=== PATIENT | male | born 1985 | race Hispanic/Latino ===

== ENCOUNTER 2023-03-10 19:05 | Inpatient (IN) | payer OTHER ==
[~2023-03-10] VITALS: Ht 177.8 cm; Wt 95.3 kg
[2023-03-10 20:12] LABS: BASOPHILS # (AUTO) 0.09 K/uL (0.00-0.20); BASOPHILS % (AUTO) 1.1 % (0.0-5.0); EOSINOPHILS # (AUTO) 0.19 K/uL (0.00-0.70); EOSINOPHILS % (AUTO) 2.3 % (0.0-8.0); HEMATOCRIT 43.2 % (42-54); IMMATURE GRANULOCYTE ABSOLUTE 0.03 K/uL (0-1); LYMPHOCYTES # (AUTO) 2.2 K/uL (1.0-4.8); LYMPHOCYTES % (AUTO) 27.1 % (21.0-51.0); MEAN CORPUSCULAR HEMOGLOBIN 30.6 pg (27.0-33.0); MEAN CORPUSCULAR HGB CONC 34.3 g/dL (32.0-36.0); MEAN CORPUSCULAR VOLUME 89.4 fL (79-99); MONOCYTES # (AUTO) 0.8 K/uL (0.1-1.0); MONOCYTES % (AUTO) 9.5 % (3.0-13.0); NEUTROPHILS # (AUTO) 4.8 K/uL (1.8-7.7); NEUTROPHILS % (AUTO) 59.6 % (40.0-77.0); PLATELET COUNT (AUTO) 197 K/uL (130-400); RED BLOOD CELL COUNT(AUTO) 4.83 MIL/uL (4.50-6.20); RED CELL DISTRIBUTION WIDTH 12.6 % (11.0-15.5); WHITE BLOOD COUNT (AUTO) 8.1 K/uL (4.8-10.8)
[2023-03-10 20:24] LABS: CREATININE 1.6 mg/dL (0.5-1.5); POTASSIUM 4.7 mmol/L (3.5-5.1)
[2023-03-10 20:25] LABS: APPEARANCE,URINE CLEAR (CLEAR); BILIRUBIN,URINE NEGATIVE (NEGATIVE); COLOR,URINE LIGHT-YELLOW (YELLOW); GLUCOSE, URINE (UA) NEGATIVE (NEGATIVE); KETONES,URINE NEGATIVE (NEGATIVE); LEUKOCYTE ESTERASE ,URINE NEGATIVE Leu/uL (NEGATIVE); NITRATE,URINE NEGATIVE (NEGATIVE); OCCULT BLOOD,URINE NEGATIVE (NEGATIVE); PROTEIN,URINE 10 mg/dL (NEGATIVE); UROBILINOGEN,URINE 0.2 mg/dL (0.2-1.0)
[2023-03-10 20:26] LABS: ADD UA MICROSCOPIC YES
[2023-03-10 20:27] LABS: MUCUS,URINE RARE LPF (None Seen); RBC,URINE 0-1 /HPF (0-1); WBC,URINE 0-1 /HPF (0-1)
[2023-03-10 20:28] LABS: ALBUMIN 3.7 g/dL (3.5-5.0); BILIRUBIN,TOTAL 0.5 mg/dL (0.2-1.0); TOTAL PROTEIN, SERUM 6.1 g/dL (6.0-8.3)
[2023-03-10] MEDS ORDERED: AMIODARONE 150MG VIAL ONE (20:43)
[2023-03-10] MEDS ORDERED: AMIODARONE 900MG VIAL 150 MG in DEXTROSE 5%-WATER 100 ML IV SCH (21:00)
[2023-03-10] MEDS ORDERED: AMIODARONE 900MG VIAL 360 MG in DEXTROSE 5%-WATER 200 ML IV SCH (21:00)
[2023-03-10 22:20] LABS: AMPHET/METH SCREEN,URINE NEGATIVE (NEGATIVE); BARBITURATE SCREEN, URINE NEGATIVE (NEGATIVE); BENZODIAZEPINES SCREEN,URINE NEGATIVE (NEGATIVE); CANNABINOID SCREEN,URINE NEGATIVE (NEGATIVE); COCAINE SCREEN,URINE NEGATIVE (NEGATIVE); OPIATE SCREEN,URINE NEGATIVE (NEGATIVE); PHENCYCLIDINE SCREEN,URINE NEGATIVE (NEGATIVE)
[2023-03-10] MEDS ORDERED: ONDANSETRON 4MG INJ IV PRN (23:00)
[2023-03-10] MEDS: 0.9%NACL 1000ML 1,000 ML IV SCH (23:28)
[2023-03-10] MEDS: CEFTRIAXONE 1G VIAL IVPB SCH (23:41)
[2023-03-10] MEDS: MORPHINE 2 MG SYG IVP PRN (23:41)
[2023-03-10] MEDS ORDERED: APIX5TAB PO (23:43)
[2023-03-10] MEDS ORDERED: SOTA120T PO (23:43)
[2023-03-11] VITALS (9 sets, daily range): BP systolic 98–121; BP diastolic 48–79; PULSE 43–160; RESP 16–18; O2SAT 99
[2023-03-11] MEDS: AMIODARONE 900MG VIAL 540 MG in DEXTROSE 5%-WATER 300 ML IV SCH ×2 (03:46→21:52)
[2023-03-11] MEDS ORDERED: METOPROLOL TARTRATE 1 MG/ML 5ML VIAL IV ONE (05:00)
[2023-03-11 06:22] LABS: HEMATOCRIT 41.6 % (42-54); MEAN CORPUSCULAR HEMOGLOBIN 30.2 pg (27.0-33.0); MEAN CORPUSCULAR HGB CONC 33.7 g/dL (32.0-36.0); MEAN CORPUSCULAR VOLUME 89.8 fL (79-99); RED BLOOD CELL COUNT(AUTO) 4.63 MIL/uL (4.50-6.20); RED CELL DISTRIBUTION WIDTH 12.8 % (11.0-15.5); WHITE BLOOD COUNT (AUTO) 5.9 K/uL (4.8-10.8)
[2023-03-11 06:36] LABS: INR 1.12 (0.85-1.15); PROTHROMBIN TIME 12.9 SEC (9.6-11.6)
[2023-03-11 06:37] LABS: PARTIAL THROMBOPLASTIN TIME 29.2 SEC (26.3-35.5)
[2023-03-11 06:55] LABS: ALBUMIN 3.2 g/dL (3.5-5.0); BILIRUBIN,TOTAL 0.8 mg/dL (0.2-1.0); CREATININE 1.6 mg/dL (0.5-1.5); POTASSIUM 4.7 mmol/L (3.5-5.1); THYROID STIMULATING HORMONE 1.9 uIU/mL (0.36-3.74); TOTAL PROTEIN, SERUM 5.4 g/dL (6.0-8.3)
[2023-03-11] MEDS: FAMOTIDINE 20MG VIAL IV SCH ×2 (08:36→20:41)
[2023-03-11] MEDS: MAGNESIUM 2GM PREMIX 50ML 50 ML IV PRN (15:29)
[2023-03-11] MEDS: ENOXAPARIN SODIUM 100 MG/1 ML SQ SCH (20:41)
[2023-03-11] MEDS: SOTALOL HCL 80 MG TABLET PO SCH (20:41)
[2023-03-12] VITALS (7 sets, daily range): BP systolic 92–118; BP diastolic 52–69; PULSE 60–150; RESP 18–22; O2SAT 98
[2023-03-12] MEDS: MORPHINE 2 MG SYG IVP PRN (00:09)
[2023-03-12 04:29] LABS: HEMATOCRIT 39.8 % (42-54); MEAN CORPUSCULAR HEMOGLOBIN 30.6 pg (27.0-33.0); MEAN CORPUSCULAR HGB CONC 34.2 g/dL (32.0-36.0); MEAN CORPUSCULAR VOLUME 89.4 fL (79-99); RED BLOOD CELL COUNT(AUTO) 4.45 MIL/uL (4.50-6.20); RED CELL DISTRIBUTION WIDTH 12.9 % (11.0-15.5)
[2023-03-12 04:55] LABS: ALBUMIN 2.8 g/dL (3.5-5.0); BILIRUBIN,TOTAL 0.6 mg/dL (0.2-1.0); CREATININE 1.5 mg/dL (0.5-1.5); MAGNESIUM 1.9 mg/dL (1.80-2.40); POTASSIUM 3.4 mmol/L (3.5-5.1)
[2023-03-12] MEDS: MAGNESIUM 2GM PREMIX 50ML 50 ML IV PRN (06:05)
[2023-03-12] MEDS: FAMOTIDINE 20MG VIAL IV SCH ×2 (08:40→20:04)
[2023-03-12] MEDS: ENOXAPARIN SODIUM 100 MG/1 ML SQ SCH ×2 (08:41→20:04)
[2023-03-12] MEDS: 0.9%NACL 1000ML 1,000 ML IV SCH ×2 (08:49→16:12)
[2023-03-12] MEDS ORDERED: POTASSIUM CHLORIDE 20 MEQ/100 ML BAG IV ONE (09:00)
[2023-03-12] MEDS: SOTALOL HCL 80 MG TABLET PO SCH (09:06)
[2023-03-12] MEDS: DILTIAZEM 125 MG/25 ML INJ 125 MG in 0.9%NACL 100ML 100 ML IV SCH ×2 (10:19→17:35)
[2023-03-12] MEDS: VERAPAMIL HCL 80 MG TABLET PO SCH (16:40)
[2023-03-12] MEDS: CEFTRIAXONE 1G VIAL IVPB SCH ×2 (23:12)
[2023-03-13] VITALS (9 sets, daily range): BP systolic 88–127; BP diastolic 45–64; PULSE 52–166; RESP 18–22; O2SAT 97–98
[2023-03-13] MEDS: VERAPAMIL HCL 80 MG TABLET PO SCH ×3 (01:28→17:18)
[2023-03-13] MEDS: DILTIAZEM 125 MG/25 ML INJ 125 MG in 0.9%NACL 100ML 100 ML IV SCH ×3 (01:33→18:48)
[2023-03-13 04:29] LABS: HEMATOCRIT 38.1 % (42-54); MEAN CORPUSCULAR HEMOGLOBIN 30.8 pg (27.0-33.0); MEAN CORPUSCULAR HGB CONC 34.6 g/dL (32.0-36.0); RED BLOOD CELL COUNT(AUTO) 4.28 MIL/uL (4.50-6.20); WHITE BLOOD COUNT (AUTO) 6.2 K/uL (4.8-10.8)
[2023-03-13 04:46] LABS: BILIRUBIN,TOTAL 0.4 mg/dL (0.2-1.0); CREATININE 1.5 mg/dL (0.5-1.5); MAGNESIUM 1.9 mg/dL (1.80-2.40); POTASSIUM 3.5 mmol/L (3.5-5.1); TOTAL PROTEIN, SERUM 5.1 g/dL (6.0-8.3)
[2023-03-13] MEDS ORDERED: MAGNESIUM 2GM PREMIX 50ML 50 ML IV SCH (09:30)
[2023-03-13] MEDS ORDERED: POTASSIUM CHLORIDE 20 MEQ/100 ML BAG IV ONE (09:30)
[2023-03-13] MEDS: FAMOTIDINE 20MG VIAL IV SCH ×2 (09:52→20:23)
[2023-03-13] MEDS: ENOXAPARIN SODIUM 100 MG/1 ML SQ SCH (09:55)
[2023-03-13] MEDS: MAGNESIUM 2GM PREMIX 50ML 50 ML IV PRN (09:56)
[2023-03-13] MEDS: 0.9%NACL 1000ML 1,000 ML IV SCH (11:00)
[2023-03-13] MEDS ORDERED: KCL 20 MEQ ERTAB PO ONE (11:57)
[2023-03-13] MEDS ORDERED: POTASSIUM CHLORIDE 10% ELIXIR 20 MEQ/15 ML UDCUP PO PRN (12:30)
[2023-03-13] MEDS ORDERED: POTASSIUM CHLORIDE 20MEQ/100ML 100 ML IV PRN (12:30)
[2023-03-13] MEDS: KCL 20 MEQ ERTAB PO PRN (16:07)
[2023-03-13] MEDS: APIXABAN 5 MG TABLET PO SCH (20:23)
[2023-03-13] MEDS ORDERED: METOPROLOL TARTRATE 25 MG TAB PO ONE (22:30)
[2023-03-13] MEDS ORDERED: SIMETHICONE 80 MG TAB.CHEW PO SCH (23:00)
[2023-03-13] MEDS: IPRATROPIUM 0.5 MG/2.5 ML INH IH PRN (23:58)
[2023-03-14] VITALS (14 sets, daily range): BP systolic 99–121; BP diastolic 49–70; PULSE 54–109; RESP 18–22; O2SAT 95–98
[2023-03-14] MEDS: VERAPAMIL HCL 80 MG TABLET PO SCH ×3 (01:24→16:58)
[2023-03-14] MEDS: DILTIAZEM 125 MG/25 ML INJ 125 MG in 0.9%NACL 100ML 100 ML IV SCH ×3 (02:47→20:41)
[2023-03-14 04:43] LABS: BILIRUBIN,TOTAL 0.5 mg/dL (0.2-1.0); CREATININE 1.5 mg/dL (0.5-1.5); TOTAL PROTEIN, SERUM 5.2 g/dL (6.0-8.3)
[2023-03-14] MEDS: APIXABAN 5 MG TABLET PO SCH ×2 (08:25→20:40)
[2023-03-14] MEDS: FAMOTIDINE 20MG VIAL IV SCH ×2 (08:25→20:40)
[2023-03-14] MEDS ORDERED: METOPROLOL TARTRATE 25 MG TAB PO SCH (09:00)
[2023-03-14] MEDS: IPRATROPIUM 0.5 MG/2.5 ML INH IH PRN ×2 (11:44→19:38)
[2023-03-14] MEDS ORDERED: SIMETHICONE 40 MG/0.6 ML ML PO PRN (16:00)
[2023-03-14] MEDS ORDERED: SIMETHICONE 80 MG TAB.CHEW PO PRN (17:00)
[2023-03-15] VITALS (13 sets, daily range): BP systolic 91–108; BP diastolic 52–67; PULSE 53–160; RESP 18–20; O2SAT 96–98
[2023-03-15] MEDS: VERAPAMIL HCL 80 MG TABLET PO SCH ×3 (01:00→17:26)
[2023-03-15 04:53] LABS: HEMATOCRIT 39.9 % (42-54); MEAN CORPUSCULAR HEMOGLOBIN 30.2 pg (27.0-33.0); MEAN CORPUSCULAR HGB CONC 33.1 g/dL (32.0-36.0); MEAN CORPUSCULAR VOLUME 91.3 fL (79-99); RED BLOOD CELL COUNT(AUTO) 4.37 MIL/uL (4.50-6.20); RED CELL DISTRIBUTION WIDTH 13.4 % (11.0-15.5); WHITE BLOOD COUNT (AUTO) 5.6 K/uL (4.8-10.8)
[2023-03-15] MEDS: IPRATROPIUM 0.5 MG/2.5 ML INH IH PRN ×2 (05:07→21:31)
[2023-03-15 05:16] LABS: BILIRUBIN,DIRECT 0.2 mg/dL (0.0-0.3); BILIRUBIN,TOTAL 0.5 mg/dL (0.2-1.0); CREATININE 1.6 mg/dL (0.5-1.5); MAGNESIUM 1.7 mg/dL (1.80-2.40); POTASSIUM 4.1 mmol/L (3.5-5.1); TOTAL PROTEIN, SERUM 5.2 g/dL (6.0-8.3)
[2023-03-15] MEDS: FAMOTIDINE 20MG VIAL IV SCH ×2 (08:27→21:23)
[2023-03-15] MEDS: APIXABAN 5 MG TABLET PO SCH ×2 (08:27→21:23)
[2023-03-15] MEDS: DRONEDARONE HYDROCHLORIDE 400 MG TABLET PO SCH ×2 (08:27→21:23)
[2023-03-15] MEDS ORDERED: LIDOCAINE HCL 2% VISCOUS 15 ML UDCUP PO ONE ×2 (09:30)
[2023-03-15] MEDS ORDERED: FENTANYL CITRATE PF 50 MCG/1 ML 2ML VIAL IVP ONE (09:30)
[2023-03-15] MEDS ORDERED: MIDAZOLAM HCL 1 MG/ML 2ML VIAL IVP ONE ×2 (10:00→12:00)
[2023-03-15] MEDS ORDERED: DRONEDARONE HYDROCHLORIDE 400 MG TABLET PO SCH (12:55)
[2023-03-16 01:08] VITALS: BP 108/63; PULSE 63; RESP 18
[2023-03-16] MEDS: VERAPAMIL HCL 80 MG TABLET PO SCH ×2 (01:13→08:10)
[2023-03-16 03:23] VITALS: BP 102/69; PULSE 72; RESP 18
[2023-03-16 04:45] LABS: BILIRUBIN,TOTAL 0.6 mg/dL (0.2-1.0); CREATININE 1.5 mg/dL (0.5-1.5); POTASSIUM 3.6 mmol/L (3.5-5.1); TOTAL PROTEIN, SERUM 5.1 g/dL (6.0-8.3)
[2023-03-16] MEDS: KCL 20 MEQ ERTAB PO PRN (05:55)
[2023-03-16 07:06] VITALS: BP 113/72; PULSE 67; RESP 18
[2023-03-16 07:22] VITALS: PULSE 76; RESP 19; O2SAT 98
[2023-03-16 07:49] VITALS: O2SAT 97
[2023-03-16] MEDS: APIXABAN 5 MG TABLET PO SCH (08:10)
[2023-03-16] MEDS: DRONEDARONE HYDROCHLORIDE 400 MG TABLET PO SCH (08:10)
[2023-03-16] MEDS: FAMOTIDINE 20MG VIAL IV SCH (08:10)
[2023-03-16 10:57] VITALS: BP 104/66; PULSE 74; RESP 18
[2023-03-16] MEDS ORDERED: DRON400T7 PO (14:21)
[2023-03-16] MEDS ORDERED: METO-391 PO (14:21)
[2023-03-16] MEDS ORDERED: SIME80TA13 PO (15:05)
== END 2023-03-16 15:45 | disposition home or self-care (01) | DRG 274 ==
LOC: EDH 19:05 → EDHIP 19:06 → 2DH 03-11 01:47
PROVIDERS: ADMIT Hospitalist; ATTEND Hospitalist
PROC: 02583ZZ Destruction of Conduction Mechanism, Percutaneous Approach (ICD-10-PCS; principal; 2023-03-15)
DX: I48.0 Paroxysmal atrial fibrillation (principal); K81.0 Acute cholecystitis; N17.9 Acute kidney failure, unspecified; I95.9 Hypotension, unspecified; E86.0 Dehydration; K76.0 Fatty (change of) liver, not elsewhere classified; I42.2 Other hypertrophic cardiomyopathy; Z79.01 Long term (current) use of anticoagulants; Z79.899 Other long term (current) drug therapy
CPT/HCPCS: 36415; 71045; 76700; 78227; 80048; 80053; 80076; 80305; 81001; 83690; 83735; 83880; 84443; 85025; 85027; 85610; 85730; 92960; 93005; 93306; 93312; 93356; 94640; 94664; 99291; A9537; G0378; J0282; J0696; J1650; J2250; J2270; J3010; J3475; J3480; J3490; J7030; J7060

== ENCOUNTER 2023-07-06 05:39 | Day surgery (SDC) | payer OTHER ==
[2023-07-05 10:01] LABS: BASOPHILS # (AUTO) 0.05 K/uL (0.00-0.20); BASOPHILS % (AUTO) 0.9 % (0.0-5.0); EOSINOPHILS # (AUTO) 0.11 K/uL (0.00-0.70); EOSINOPHILS % (AUTO) 1.9 % (0.0-8.0); HEMATOCRIT 41.3 % (42-54); IMMATURE GRANULOCYTE ABSOLUTE 0.02 K/uL (0-1); LYMPHOCYTES # (AUTO) 1.6 K/uL (1.0-4.8); LYMPHOCYTES % (AUTO) 27.7 % (21.0-51.0); MEAN CORPUSCULAR HEMOGLOBIN 29.9 pg (27.0-33.0); MEAN CORPUSCULAR HGB CONC 33.4 g/dL (32.0-36.0); MEAN CORPUSCULAR VOLUME 89.6 fL (79-99); MONOCYTES # (AUTO) 0.6 K/uL (0.1-1.0); MONOCYTES % (AUTO) 9.7 % (3.0-13.0); NEUTROPHILS # (AUTO) 3.4 K/uL (1.8-7.7); NEUTROPHILS % (AUTO) 59.4 % (40.0-77.0); PLATELET COUNT (AUTO) 207 K/uL (130-400); RED BLOOD CELL COUNT(AUTO) 4.61 MIL/uL (4.50-6.20); RED CELL DISTRIBUTION WIDTH 13.4 % (11.0-15.5); WHITE BLOOD COUNT (AUTO) 5.7 K/uL (4.8-10.8)
[2023-07-05 10:13] LABS: CREATININE 1.7 mg/dL (0.5-1.5); INR 1.16 (0.85-1.15); POTASSIUM 4.6 mmol/L (3.5-5.1); PROTHROMBIN TIME 13.3 SEC (9.6-11.6)
[2023-07-05 10:14] LABS: PARTIAL THROMBOPLASTIN TIME 28.6 SEC (26.3-35.5)
[2023-07-05 10:23] VITALS: BP 109/75; PULSE 54; RESP 19
[2023-07-06] VITALS (9 sets, daily range): BP systolic 84–99; BP diastolic 32–64; PULSE 59–174; RESP 16
[~2023-07-06] VITALS: Ht 177.8 cm; Wt 97.4 kg
[~2023-07-06 05:39] MED LIST: APIX5TAB PO; METO-391 PO; VERA180T61 PO; albuterol IH
[2023-07-06] MEDS ORDERED: 0.9%NACL 1000ML 1,000 ML IV ONE (07:00)
[2023-07-06] MEDS ORDERED: LIDOCAINE HCL 2% VISCOUS 15 ML UDCUP ONE (07:28)
[2023-07-06] MEDS ORDERED: PROPOFOL 10 MG/ML 20ML VIAL IV ONE ×2 (08:00→08:07)
[2023-07-06] MEDS ORDERED: SUCCINYLCHOLINE CHLORIDE 20 MG/ML 10 ML VIAL ONE (08:04)
== END 2023-07-06 09:45 | disposition home or self-care (01) ==
LOC: DAH 05:39
PROVIDERS: ATTEND Internal Medicine
DX: I08.1 Rheumatic disorders of both mitral and tricuspid valves (principal); I48.19 Other persistent atrial fibrillation; I48.92 Unspecified atrial flutter; K76.0 Fatty (change of) liver, not elsewhere classified; I42.2 Other hypertrophic cardiomyopathy; Z79.01 Long term (current) use of anticoagulants; Z79.899 Other long term (current) drug therapy; Z98.890 Other specified postprocedural states
CPT/HCPCS: 80048; 85025; 85610; 85730; 36415; 92960; 93325; 93312; 93005 ×2; J0330; J7030; J2704; A4620; A4215; A4223 ×3; A4657; A7002; A4222; A4221; A4663; A4216; A4606; 99152; 99153; G0500; J3490

== ENCOUNTER 2023-08-03 07:15 | Observation (INO) | payer OTHER ==
[2023-07-30 13:24] LABS: BASOPHILS % (AUTO) 1.6 % (0.0-5.0); EOSINOPHILS # (AUTO) 0.26 K/uL (0.00-0.70); EOSINOPHILS % (AUTO) 4.2 % (0.0-8.0); HEMATOCRIT 45.3 % (42-54); IMMATURE GRANULOCYTE ABSOLUTE 0.01 K/uL (0-1); LYMPHOCYTES # (AUTO) 2.8 K/uL (1.0-4.8); LYMPHOCYTES % (AUTO) 44.9 % (21.0-51.0); MEAN CORPUSCULAR HEMOGLOBIN 29.8 pg (27.0-33.0); MEAN CORPUSCULAR HGB CONC 34.4 g/dL (32.0-36.0); MEAN CORPUSCULAR VOLUME 86.6 fL (79-99); MONOCYTES # (AUTO) 0.7 K/uL (0.1-1.0); MONOCYTES % (AUTO) 11.1 % (3.0-13.0); NEUTROPHILS # (AUTO) 2.4 K/uL (1.8-7.7); PLATELET COUNT (AUTO) 230 K/uL (130-400); RED BLOOD CELL COUNT(AUTO) 5.23 MIL/uL (4.50-6.20); RED CELL DISTRIBUTION WIDTH 12.6 % (11.0-15.5); WHITE BLOOD COUNT (AUTO) 6.2 K/uL (4.8-10.8)
[2023-07-30 13:35] LABS: CREATININE 1.2 mg/dL (0.5-1.5); POTASSIUM 4.2 mmol/L (3.5-5.1)
[2023-07-30 13:41] LABS: INR 1.02 (0.85-1.15); PROTHROMBIN TIME 11.8 SEC (9.6-11.6)
[2023-07-30 13:43] VITALS: BP 110/52; PULSE 51; RESP 12
[2023-07-30 13:43] LABS: PARTIAL THROMBOPLASTIN TIME 29.6 SEC (26.3-35.5)
[2023-08-03] VITALS (18 sets, daily range): BP systolic 107–135; BP diastolic 57–91; PULSE 52–86; RESP 12–20; O2SAT 100
[~2023-08-03] VITALS: Ht 177.8 cm; Wt 92.0 kg
[~2023-08-03 07:15] MED LIST changes: -METO-391 PO; +SALBUTAMOL IH; +SOTA80TA PO; -VERA180T61 PO
[2023-08-03] MEDS: 0.9%NACL 1000ML 1,000 ML IV ONE (07:58)
[2023-08-03] MEDS ORDERED: DEXAMETHASONE SOD PHOSPHATE 10MG/ML 1ML VIAL ONE (09:01)
[2023-08-03] MEDS ORDERED: ONDANSETRON 4MG INJ ONE (09:01)
[2023-08-03] MEDS ORDERED: KETAMINE 50MG/ML SYRINGE 50 MG/ML DISP.SYRIN ONE (09:01)
[2023-08-03] MEDS ORDERED: LIDOCAINE PF 100MG/5ML (2%) SYRINGE 5ML ONE (09:01)
[2023-08-03] MEDS ORDERED: PROPOFOL 10 MG/ML 20ML VIAL IV ONE (09:01)
[2023-08-03] MEDS ORDERED: ROCURONIUM BROMIDE 10MG/1ML 5ML VL ONE ×4 (09:02→13:43)
[2023-08-03] MEDS ORDERED: PHENYLEPHRINE HCL 10 MG/ML 1ML VIAL IV ONE ×2 (09:02→12:03)
[2023-08-03] MEDS ORDERED: MIDAZOLAM HCL 1 MG/ML 2ML VIAL ONE (09:02)
[2023-08-03] MEDS ORDERED: FENTANYL CITRATE PF 50 MCG/1 ML 2ML VIAL ONE (09:04)
[2023-08-03] MEDS ORDERED: LIDOCAINE HCL 1% MDV 50ML VIAL ONE (09:28)
[2023-08-03] MEDS ORDERED: HEPARIN 10,000 UNIT/10ML (1,000 UNIT/ML) VIAL ONE ×4 (09:28→13:54)
[2023-08-03] MEDS ORDERED: LIDOCAINE HCL 400MG/20ML VIAL ONE (09:29)
[2023-08-03] MEDS ORDERED: CEFAZOLIN SODIUM 1 GM VIAL ONE (10:03)
[2023-08-03] MEDS ORDERED: GLYCOPYRROLATE 0.2 MG/ML 5 ML VIAL ONE (10:06)
[2023-08-03] MEDS ORDERED: FAMOTIDINE 20MG VIAL IV ONE (10:27)
[2023-08-03] MEDS ORDERED: PROTAMINE SULFATE 10 MG/ML 5 ML VIAL ONE (15:33)
[2023-08-03] MEDS ORDERED: NEOSTIGMINE METHYLSULFATE 1MG/ML IV ONE (15:53)
[2023-08-03] MEDS: SUCRALFATE 1 GM TABLET PO SCH (16:30)
[2023-08-03] MEDS ORDERED: SALBUTAMOL IH PRN (17:00)
[2023-08-03] MEDS: ONDANSETRON 4MG INJ ONE ×2 (17:16→18:02)
[2023-08-03] MEDS: MEPERIDINE-PF 25 MG/ML SYG ONE ×2 (17:16→18:02)
[2023-08-03] MEDS: COLCHICINE 0.6 MG TABLET PO SCH (22:33)
[2023-08-03] MEDS: SOTALOL HCL 80 MG TABLET PO SCH (22:33)
[2023-08-03] MEDS: APIXABAN 5 MG TABLET PO SCH (22:33)
[2023-08-04] MEDS: METOCLOPRAMIDE 10 MG/2 ML VIAL IVP ONE (00:09)
[2023-08-04 00:10] VITALS: BP 139/79; PULSE 85; RESP 18
[2023-08-04] MEDS: METOCLOPRAMIDE 10 MG/2 ML VIAL ONE (00:55)
[2023-08-04 04:11] VITALS: BP 137/83; PULSE 84; RESP 16
[2023-08-04 06:45] VITALS: PULSE 76; RESP 19
[2023-08-04] MEDS: PROMETHAZINE HCL 25 MG/ML 1ML AMPULE IM ONE (07:00)
[2023-08-04 08:00] VITALS: O2SAT 100
[2023-08-04] MEDS ORDERED: PANT40TA55 PO (08:04)
[2023-08-04] MEDS ORDERED: SUCR1TAB2 PO (08:04)
[2023-08-04] MEDS ORDERED: COLC0.6T73 PO (08:04)
[2023-08-04] MEDS: PANTOPRAZOLE 40 MG TAB DR PO SCH (08:09)
[2023-08-04 08:45] VITALS: BP 142/87; PULSE 86; RESP 20
[2023-08-04] MEDS: ACETAMINOPHEN 325 MG TAB ONE (09:01)
== END 2023-08-04 10:46 | disposition home or self-care (01) ==
LOC: DAH 07:15 → DAHIP 07:16 → DAH 07:16 → 2CV 17:28
PROVIDERS: ADMIT Internal Medicine Cardiovascular Disease; ATTEND Internal Medicine Cardiovascular Disease
DX: I48.19 Other persistent atrial fibrillation (principal); J45.909 Unspecified asthma, uncomplicated
CPT/HCPCS: 80048; 85025; 85610; 85730; 36415 ×2; 93005; 93656; 93657 ×2; 85347 ×17; 96374; A4344; C1894 ×3; C1732 ×3; C1893; A4215 ×2; C1731; A4649 ×2; C1730; G0378 ×19; J3490 ×9; J3010; J0690; J1100; J7030; J2001; J2720; J1644 ×6; J2250; J2704; J2405 ×3; J2710; J2175 ×2; J2371 ×2; A4223 ×3; A4222; A4221; A4663; A4216; A4606; J2765

== ENCOUNTER → 2023-11-24 | Outpatient (CLI) | payer OTHER ==
[~2023-11-24] MED LIST changes: +COLC0.6T73 PO; +PANT40TA55 PO; +SUCR1TAB2 PO; -albuterol IH
== END | disposition home or self-care (01) ==
LOC: RAH 13:11
PROVIDERS: ATTEND Internal Medicine Cardiovascular Disease
DX: I07.1 Rheumatic tricuspid insufficiency (principal); I48.0 Paroxysmal atrial fibrillation; I42.2 Other hypertrophic cardiomyopathy
CPT/HCPCS: 93306

== ENCOUNTER → 2024-08-31 | Outpatient (CLI) | payer OTHER ==
[~2024-08-31] MED LIST changes: -COLC0.6T73 PO; -PANT40TA55 PO; -SALBUTAMOL IH; -SOTA80TA PO; -SUCR1TAB2 PO
--- NOTE | 2024-09-03 13:00 | HMCSR ---
APPROVED REPORT TEST INDICATIONS Atrial Fibrillation The imaging protocol used to acquire images was Rest Tc-99m / TREADMILL stress Tc-99m 1 day Consent: The procedure was explained and understood by the patient. Informerd consent was witnessed Mohit Menard [facility] First, low dose rest was performed then high dose stress. RESTING DATA: The resting ekg shows: NSR Rest SPECT myocardial perfusion imaging was performed in supine position minutes following the intra venous injection of 10 mCi of Tc-99 Sestamibi. Time of rest injection: 0900 Date: 08/31/2024 EXERCISE STRESS: At peak stress, the patient was injected intravenously with mCi of Tc-99 Sestamibi. Time of stress injection: 1125 Date: 08/31/2024 Heart Rate at time of stress injection: 153 bpm. Patient continued to exercise for 1 minute(s). The images were gated to evaluate regional wall motion and calculate left ventricular ejection fracti on. STRESS DETAILS Reason for Termination: Infusion complete, Reached target heart rate Stress Symptoms: No chest pain or symptoms Max HR Achieved: 160 bpm % of APMHR Achieved: 104 Max Blood Pressure: 210/65 mmHg Exercise duration: 11:40 min Highest Stage Achieved: Stage 4: 4.2 mph at 16% grade. Stress ECG: NSR Study quality was excellent. Lung uptake was Normal. Artifact: No artifact LEFT VENTRICLE Size: The left ventricular size is normal. Systolic Function:The left ventricular systolic function is normal. Wall Motion: No regional wall motion abnormalities noted. The left ventricular ejection fraction was calculated to be 65%.TID = . LV PERFUSION The rest and stress images show normal perfusion. Conclusion Normal exercise Cardiolite stress test Excellent exercise capacity Nondiagnostic exercise treadmill EKG portion secondary to baseline abnormalities No evidence of ischemia or infarct Preserved ejection fraction and wall motion Low risk scan
== END | disposition home or self-care (01) ==
LOC: RAH 08:09
PROVIDERS: ATTEND Internal Medicine Cardiovascular Disease
DX: I48.0 Paroxysmal atrial fibrillation (principal); I42.2 Other hypertrophic cardiomyopathy
CPT/HCPCS: 78452; 93017; A9500 ×2